=== PATIENT | male | born 1960 | race Caucasian/White ===

== ENCOUNTER 2016-10-29 12:45 | Emergency (ER) | payer OTHER ==
[~2016-10-29] VITALS: Ht 160 cm; Wt 75.0 kg
[2016-10-29 12:47] VITALS: Ht 160 cm; Wt 75.0 kg
[2016-10-29] MEDS ORDERED: FLUORESCEIN STRIP LEFT EYE ONE (13:30)
[2016-10-29] MEDS ORDERED: TETRACAINE 0.5% 4 ML OPH LEFT EYE SCH (13:30)
[2016-10-29] MEDS ORDERED: SLF10OP15 LEFT EYE (14:25)
--- NOTE | 2016-10-29 14:38 | ERD ---
ER Documentation Chief Complaint Date/Time DATE: 10/29/16 TIME: 14:33 Chief Complaint left eye pain/burnning HPI 56-year-old male with no significant past medical history presents to the ED stating that he was grinding metal and accidentally may have gotten something in his left eye since 3 days ago. Reports that it feels like a burning sensation. Reports that he feels a foreign body sensation. Denies any eye pain or vision loss. Denies any headache, numbness or tingling, weakness. States that he was not wearing protective glasses. Reports that he does not wear contacts. States that he wears reading glasses. Denies any diplopia, photophobia, seeing floaters. ROS All systems reviewed and are negative except as per history of present illness. Medications Home Meds Active Scripts Sulfacetamide Sodium* (Sulfacetamide Sodium*) 10%-15 Ml Opht Drops, 1 DROP LEFT EYE Q2H for 7 Days, EA Prov:TL CARVALHO PA-C 10/29/16 PMhx/Soc Medical and Surgical Hx: pt denies Medical Hx, pt denies Surgical Hx Hx Alcohol Use: No Hx Substance Use: No Hx Tobacco Use: Yes (1/2 PACK) Smoking Status: Current every day smoker Physical Exam Vitals Vital Signs Date Time Temp Pulse Resp B/P Pulse Ox O2 Delivery O2 Flow Rate FiO2 10/29/16 12:47 98.1 73 18 140/74 99 Physical Exam Const: Yke-gmy-ioyiwutmy, well-nourished. In no acute distress. Head: Atraumatic, normocephalic Eyes: Right normal Conjunctiva without injection. Left erythematous injected conjunctiva. No purulent discharge. PERRLA. EOMI ENT: Normal external ear. Ear canal without erythema. Tympanic membrane pearly germain without effusion or bulging. Nasal canal clear with normal turbinates. Moist oropharynx without tonsillar exudates. Non-erythematous pharynx. Uvula midline. No drooling. No trismus. Neck: No cervical midline tenderness. Full range of motion. No meningismus. No cervical lymphadenopathy. No JVD. Resp: Clear to auscultation bilaterally. No wheezing, rhonchi, rales, or crackles. No accessory muscle use. No retractions. Cardio: Regular rate and rhythm. No murmurs, rubs or gallops. Abd: Soft, non tender, non distended. Normal bowel sounds. No palpable masses. No rebound tenderness. No guarding. Negative McBurney's Point. Negative Thompson's Sign. Skin: Normal skin turgor. No petechiae or rashes Back: No midline tenderness. No CVA tenderness. Ext: No cyanosis, or edema. Distal pulses intact bilaterally. Neur: Awake and alert. Normal gait. Normal coordination. Cranial Nerves II- VII intact. Normal finger to nose. Muscle strength 5/5. Sensation intact. Psych: Normal Mood and Affect Results 24 hrs Current Medications Medications (Trade) Dose Ordered Sig/Gualberto Route PRN Reason Start Time Stop Time Status Last Admin Dose Admin Tetracaine HCl (Tetracaine 0.5% Steri-Unit Chantale) 1 drop ONCE LEFT EYE 10/29/16 13:30 10/29/16 14:59 DC Fluorescein Sodium (Gikkz-R-Npnuw) 1 strip ONCE ONCE LEFT EYE 10/29/16 13:30 10/29/16 13:31 DC Procedures/MDM 48-year-old male patient with no significant past medical history presents the ED complaining of a left eye injury while grinding metal. States that he was wearing his reading glasses. Patient is afebrile and nontoxic-appearing. Patient has normal vital signs. Visual acuity was ordered to further evaluate patient. Patient gave consent to do a fluorescein stain with a Henry lamp. Eye Exam w/ Wood's lamp: Visual Acuity: [Right 20/40 Left 20/30 Bilateral 20/25] Visual Palacios: Intact in all four quadrants bilaterally Lac ducts/glands: No swelling Lids w/ evertion: Normal, no foreign body Conj/Jasper: Clear, negative Fluorescein/Ronen's Patient's ocular symptoms have stabilized while they have been evaluated in the department and are appropriate for outpatient work up. Patient will be covered for a possible corneal abrasion however no direct fluorescein uptake noted. Low suspicion for ruptured globe, retinal detachment, periorbital cellulitis, acute angle closure glaucoma, deep space infection, iritis, traumatic hyphema, conjunctivitis, subconjunctival hemorrhage, corneal abrasion, corneal ulcer, pterygium, hypopyon, blepharitis, hordeolum, chalazion , or other emergent conditions. Discharge medications: Sulfacetamide Sodium Ophthalmic Drops Strictly instructed patient to follow up with an sales enablement manager within 24 hours. Instructed patient to return to the ED for any worsening symptoms. Patient is hemodynamically stable. Patient's questions were answered. Patient understood and agreed with discharge plan. Departure Diagnosis: Primary Impression: Eye injury Encounter type: initial encounter Laterality: right Qualified Code: S05.91XA - Right eye injury, initial encounter Condition: Stable Patient Instructions: Corneal Injury, Eye Protection at Work: First Aid Referrals: [facility] YOU HAVE RECEIVED A MEDICAL SCREENING EXAM AND THE RESULTS INDICATE THAT YOU DO NOT HAVE A CONDITION THAT REQUIRES URGENT TREATMENT IN THE EMERGENCY DEPARTMENT. FURTHER EVALUATION AND TREATMENT OF YOUR CONDITION CAN WAIT UNTIL YOU ARE SEEN IN YOUR DOCTORS OFFICE WITHIN THE NEXT 1-2 DAYS. IT IS YOUR RESPONSIBILITY TO MAKE AN APPOINTMENT FOR FOLOW-UP CARE. IF YOU HAVE A PRIMARY DOCTOR --you should call your primary doctor and schedule an appointment IF YOU DO NOT HAVE A PRIMARY DOCTOR YOU CAN CALL OUR PHYSICIAN REFERRAL HOTLINE AT IF YOU CAN NOT AFFORD TO SEE A PHYSICIAN YOU CAN CHOSE FROM THE FOLLOWING [facility] [address] [facility] [address] [facility] [facility] [address] [facility] [address] [facility] [address] [facility]. [facility]. [address] [facility] [facility]. [facility] YOU HAVE RECEIVED A MEDICAL SCREENING EXAM AND THE RESULTS INDICATE THAT YOU DO NOT HAVE A CONDITION THAT REQUIRES URGENT TREATMENT IN THE EMERGENCY DEPARTMENT. FURTHER EVALUATION AND TREATMENT OF YOUR CONDITION CAN WAIT UNTIL YOU ARE SEEN IN YOUR DOCTORS OFFICE WITHIN THE NEXT 1-2 DAYS. IT IS YOUR RESPONSIBILITY TO MAKE AN APPOINTMENT FOR FOLOW-UP CARE. IF YOU HAVE A PRIMARY DOCTOR --you should call your primary doctor and schedule and appointment IF YOU DO NOT HAVE A PRIMARY DOCTOR YOU CAN CALL OUR PHYSICIAN REFERRAL HOTLINE AT . IF YOU CAN NOT AFFORD TO SEE A PHYSICIAN YOU CAN CHOSE FROM THE FOLLOWING [facility] INSTITUTIONS: [facility] [address] [place] [address] [facility] [address] [place] [address] [facility] + [facility] [address] [place] [address] [facility] URGENT CARE/SPECIALTIES Additional Instructions: Seguimiento con un oftalmlogo en 24 horas. Regrese a estas instalaciones si no se mejora josefina esperbamos o josefina le dijimos. TL CARVALHO PA-C Oct 29, 2016 14:38
== END 2016-10-29 14:58 | disposition home or self-care (01) ==
LOC: FTE 12:45
DX: S05.92XA Unspecified injury of left eye and orbit, initial encounter (principal); F17.210 Nicotine dependence, cigarettes, uncomplicated; W20.8XXA Other cause of strike by thrown, projected or falling object, initial encounter; Y92.9 Unspecified place or not applicable
CPT/HCPCS: Z7502; Z7610; 99283